=== PATIENT | female | born 1940 | race Caucasian/White ===

== ENCOUNTER → 2019-04-11 18:25 | Outpatient (ROUT) | payer MEDICARE, OTHER, SELFPAY | PROVIDERS: Visit Provider Internal Medicine | DX: L72.3 Sebaceous cyst (principal) | CPT/HCPCS: 87070; 87075; 87205 ==

== ENCOUNTER → 2019-04-16 13:08 | Outpatient (CLI) | payer MEDICARE, OTHER, SELFPAY ==
--- NOTE | 2019-04-16 | DI.CT.S_ITS ---
PROCEDURE: CT ABDOMEN PELVIS W CON INDICATIONS: epigastric pain TECHNIQUE: After the administration of oral and intravenous contrast, 5 mm thick sections acquired from the diaphragms to the symphysis. 5 mm thick coronal and sagittal reformats were performed. For radiation dose reduction, the following was used: automated exposure control, adjustment of mA and/or kV according to patient size. COMPARISON: None. FINDINGS: Image quality: Excellent. ABDOMEN: Lung bases: Lung bases are clear. Heart size is normal. Solid organs: Liver is normal in size and enhancement. Simple 1 cm water density right renal cyst incidentally noted (series 2 image 21). Gallbladder has been previously resected. Biliary system is non-dilated. Pancreas enhances normally. Spleen is normal in size and enhancement. No adrenal nodules. Kidneys are normal in size and enhancement, without hydronephrosis. Peritoneum and bowel: Stomach, small bowel, and colon loops are normal in caliber and wall thickness. No free fluid or air. Nodes and vessels: No retroperitoneal or mesenteric adenopathy. Aorta and inferior vena cava are normal in caliber. Note is made of a phlebolith within the right gonadal vein and lateral to the junction of the middle and lower thirds of the right ureter (series 2 image 48). No urinary tract stone is found. Miscellaneous: No ventral hernias. Just to the right of midline at the abdomen/pelvis junction there is a 2.1 cm rounded subcutaneous structure within the body wall fat, likely a sebaceous cyst. PELVIS: Genitourinary: Bladder wall thickness is normal. Miscellaneous: No inguinal hernias or adenopathy. Bones: No suspicious bony lesions. No vertebral body compression fractures. IMPRESSION: Source of pain is not identified, no mass or inflammation is found. Prior cholecystectomy. There is an unexpected finding of a 2.1 cm rounded masslike structure in the subcutaneous fat to the right of midline at the abdomen/pelvis junction, most likely a sebaceous cyst but requiring clinical correlation to ensure that solid mass lesion is not cause of this finding. Dictated by: Elvin Anderson M.D. on 04/16/2019 at 15:13 Approved by: Elvin Anderson M.D. on 04/16/2019 at 15:17
== END ==
PROVIDERS: PCP Internal Medicine; Visit Provider Internal Medicine
DX: R10.13 Epigastric pain (principal); R19.09 Other intra-abdominal and pelvic swelling, mass and lump; N28.1 Cyst of kidney, acquired; Z90.49 Acquired absence of other specified parts of digestive tract
CPT/HCPCS: 74177

== ENCOUNTER → 2019-10-03 15:29 | Outpatient (ROUT) | payer MEDICARE, OTHER, SELFPAY ==
[2019-10-03 16:01] LABS: BUN Creatinine Ratio 15.8 (6-22); Blood Urea Nitrogen 15 mg/dL (7-17); Calcium 9.7 mg/dL (8.4-10.2); Carbon Dioxide 27 mmol/L (22-32); Chloride 102 mmol/L (98-107); Estimated Glomerular Filt Rate 57.2 mL/min (>60); Glucose 99 mg/dL (80-110); HEMOLYSIS < 15 (0-50); Potassium 3.9 mmol/L (3.4-5.1); Sodium 139 mmol/L (137-145)
[2019-10-04 06:36] LABS: Triiodothyronine T3 Total 107 ng/dL (71-180)
[2019-10-07 13:56] LABS: Free T4, Direct Thyroxine 2.35 ng/dL (0.78-2.19)
== END ==
PROVIDERS: PCP Internal Medicine; Visit Provider Internal Medicine
DX: I10 Essential (primary) hypertension (principal); E03.9 Hypothyroidism, unspecified; M1A.40X0 Other secondary chronic gout, unspecified site, without tophus (tophi)
CPT/HCPCS: 80048; 84436; 84439; 84443; 84480; 84550

== ENCOUNTER → 2019-12-23 10:53 | Outpatient (CLI) | payer MEDICARE, OTHER, SELFPAY ==
[2019-12-24 09:31] LABS: COVID19 Sendout Not Detected (Not Detect)
== END ==
PROVIDERS: PCP Internal Medicine; Visit Provider Physician Assistant
DX: Z11.59 Encounter for screening for other viral diseases (principal)
CPT/HCPCS: 87635

== ENCOUNTER 2019-12-26 08:10 | Day surgery (SDC) | payer MEDICARE, OTHER, SELFPAY ==
[2019-12-26] VITALS (9 sets, daily range): BP systolic 82–107; BP diastolic 44–73; PULSE 60–85; RESP 11–16; TEMP 35.7–36.5; O2SAT 95–98; BMI 29.2
[2019-12-26] MEDS: SODIUM CHLORIDE 0.9% 1,000 ML 200 ML IV (08:44)
--- NOTE | 2019-12-26 09:13 | PM.HP.1 ---
History of Present Illness History of Present Illness Date Patient Seen: 12/26/19 Time Patient Seen: 09:13 Chief complaint: SCREENING COLONOSCOPY Narrative: This is a 79-year-old woman with history of colon polyps on prior colonoscopies, the most recent of which was 6 years ago. I reviewed the note for last colonoscopy, and the polyps which were found were just hyperplastic. She denies any new symptoms of blood in the stool, melena, unexplained abdominal pain, or unexplained weight loss. She says she is otherwise healthy. She denies any family history of colon cancer, and is unsure about family history of colon polyps. ROS: Sinusitis, UTIs. Thirteen system review is otherwise negative other than as mentioned below and in HPI. PE: GENERAL: Well groomed and cooperative. Appears stated age. Answers questions promptly and appropriately. Vital signs noted. HENT: Normocephalic, atraumatic. Hearing intact. EYES: Conjunctiva pink, sclera white, no periorbital swelling. CARDIOVASCULAR: Regular rate. No pedal edema. RESPIRATORY: Non-tachypneic, breathing comfortably on room air. GASTROINTESTINAL: Abdomen soft and non-distended GENITALURINARY: No flank tenderness. MUSCULOSKELETAL: Equal tone and mass bilaterally. SKIN: Warm, dry, soft, appropriate color for ethnicity. No other lesions, rashes, or wounds. NEURO: Alert and Oriented X 3. No gross sensory deficits, or cognitive issues. PSYCH: Appropriate affect and mood. Patient History Medical History Breast cancer (Acute) Bhupinder's disease (Acute) Hypertension (Acute) Hypothyroid (Acute) Surgical History H/O mastectomy (Acute) Family & Social History Social History: household members spouse Tobacco & Substance use: Smoking Status Former smoker alcohol intake never Substance Use Type does not use Meds Home Medications and Allergies Home Medications Medication Instructions Recorded Confirmed Type amlodipine 7.5 mg PO DAILY 12/26/19 12/26/19 History anastrozole 1 mg PO DAILY 12/26/19 12/26/19 History atorvastatin 10 mg PO DAILY 12/26/19 12/26/19 History cholecalciferol (vitamin D3) 25 mcg PO DAILY 12/26/19 12/26/19 History [Vitamin D3] fluticasone propionate [Flovent 1 inh INHALATION DAILY 12/26/19 12/26/19 History Diskus] levothyroxine 100 mcg PO DAILY 12/26/19 12/26/19 History lisinopril 30 mg PO DAILY 12/26/19 12/26/19 History Allergies Allergy/AdvReac Type Severity Reaction Status Date / Time NSAIDS (Non-Steroidal Allergy Unknown Hives Verified 12/26/19 08:25 Anti-Inflamma Exam Vital Signs (past 8 hours): - 12/26/19 08:43 Temperature 97.7 F Pulse Rate 85 Respiratory Rate 12 Blood Pressure 107/73 Pulse Oximetry 95 Oxygen Delivery Method Room Air Assessment & Plan Assessment and plan (1) Personal history of colonic polyps: Status: Acute Assessment & Plan narrative: Risks and benefits of screening colonoscopy and possible polypectomy were discussed with the patient including risk of bleeding, perforation, need for additional procedures, risks of anesthesia. The patient desires to proceed with the colonoscopy procedure. COVID-19 COVID-19 status: Negative Result date/Date tested (Pos, Neg/Pending): 12/23/19 Time Spent With Patient Time with patient: 15-24 minutes
[2019-12-26] MEDS: fentaNYL 250 MCG/5 ML INJ IV (09:19)
[2019-12-26] MEDS: MIDAZOLAM 5 MG/5 ML VIAL IV (09:20)
--- NOTE | 2019-12-26 09:40 | PM.OP.ENDO ---
Operative Date/Time/Diagnoses Date of procedure: 12/26/19 Time of procedure: 09:40 Pre-op diagnosis: Personal history of colon polyps Post-op diagnosis: other (Impossible fold/stenosis at the rectosigmoid junction, aborted colonoscopy) Procedure & Clinicians Study performed: Colonoscopy to rectosigmoid junction Procedural sedation performed by the endoscopist Same procedure as scheduled: No Indications: Personal history of colon polyps Surgeon: Hansa Gibbs Procedure Notes SCOAP/Timeout: Performed Procedure in detail: The patient was brought to the room and placed in left lateral decubitus position with all bony prominences padded. A time-out was performed and then the patient was given procedural sedation starting with 3 mg of Versed and [100] mcg of fentanyl. Vitals were monitored throughout the procedure and remained stable. Once adequately sedated, the procedure was begun. A rectal exam was performed revealing [no abnormalities]. The colonoscope was then introduced to the rectum and advanced through the rectum, approaching the sigmoid colon. However there was a difficult fold at the rectosigmoid junction which was not distensible or passable with the scope. After maneuvering the patient on to her back, and applying abdominal pressure, as well as using the scope stiffener, I was not able to distend the colon at this location in order to find this safely passable lumen. We attempted to fill colon with water, in order to pass the scope that this fold would not distend. Ultimately the decision was made to abort the procedure was it was unsafe to continue blindly. The scope was then withdrawn from the rectum the procedure was concluded. The patient tolerated the procedure well and was transferred to the PACU in stable condition. Sedation minutes: 19 Findings: other findings (Impassable fold/stenosis at the rectosigmoid junction) Specimen(s): none sent Complications: none Impression: Unable to complete colonoscopy due to impossible tortuous/stenotic to sigmoid junction Post-procedure Recommendations: Other recommendation (CT colonography or barium enema) Plan for aftercare: Will refer for CT colonography or barium enema Follow up: as needed (After CT colonography or barium enema are performed) Disposition: PACU
--- NOTE | 2019-12-26 10:17 | SUR.PHASEI ---
Patient resting quietly in stretcher, no distress noted; drowsy; VSS.
--- NOTE | 2019-12-26 10:23 | SUR.PHASEI ---
Changed patient's bed linen due to wetness.
== END 2019-12-26 10:46 | disposition home or self-care (01) ==
PROVIDERS: PCP Internal Medicine; Referring Provider Internal Medicine; Visit Provider Surgery
PROC: 0DJD8ZZ Inspection of Lower Intestinal Tract, Via Natural or Artificial Opening Endoscopic (ICD-10-PCS; CPT 45378; principal; 2019-12-26 09:15)
DX: Z12.11 Encounter for screening for malignant neoplasm of colon (principal); Z86.010 Personal history of colon polyps; E06.3 Autoimmune thyroiditis; I10 Essential (primary) hypertension; K62.4 Stenosis of anus and rectum; Z53.8 Procedure and treatment not carried out for other reasons
CPT/HCPCS: 45378; 99152; J2250; J3010

== ENCOUNTER → 2020-01-08 12:38 | Outpatient (CLI) | payer MEDICARE, OTHER, SELFPAY ==
--- NOTE | 2020-01-08 12:42 | DI.RAD.S_ITS ---
PROCEDURE: FL BARIUM ENEMA W AIR CONTRAST INDICATIONS: unable to complete colonoscopy; tortuous or stenotic sigmoid COMPARISON: [facility], CT, CT ABDOMEN PELVIS W CON, 04/16/2019, 14:12. FINDINGS: KUB: Pre-procedural novelty chain maker film demonstrates a normal bowel gas pattern. No suspicious abdominal calcifications. Visualized solid organ contours are normal in size. No suspicious bony lesions. Colon: There is adequate air-contrast opacification from the rectum to the cecum. The mid and proximal segments of the sigmoid colon are narrow in caliber. There is no abrupt shouldering or obvious luminal filling defect to suggest a mass. Scattered sigmoid colonic diverticula are present. Haustral folds are normal in thickness throughout. IMPRESSION: Long segment smooth narrowing of the proximal and mid sigmoid colon. This did not distend despite copious barium instillation and air insufflation. This may represent a relatively non distensible segment of the sigmoid colon, as there is a lack of distension on a comparison CT abdomen and pelvis obtained 04/16/2019. This is not thought to represent a mass as there is no abrupt shouldering or focal intraluminal filling defect. Repeat colonoscopy could be considered to directly visualize this area, if not already performed. Dictated by: Alfred Justice M.D. on 01/08/2020 at 14:15 Approved by: Alfred Justice M.D. on 01/08/2020 at 14:18
== END ==
PROVIDERS: PCP Internal Medicine; Referring Provider Surgery; Visit Provider Surgery
DX: R93.3 Abnormal findings on diagnostic imaging of other parts of digestive tract (principal); Z86.010 Personal history of colon polyps
CPT/HCPCS: 74280

== ENCOUNTER → 2020-03-02 09:40 | Outpatient (CLI) | payer MEDICARE, OTHER, SELFPAY ==
[2020-03-02 10:47] LABS: COVID19 -Nasal RAPID Negative (Negative)
== END ==
PROVIDERS: PCP Internal Medicine; Visit Provider Surgery
DX: Z01.812 Encounter for preprocedural laboratory examination (principal); Z20.828 Contact with and (suspected) exposure to other viral communicable diseases
CPT/HCPCS: 87635; 99211

== ENCOUNTER 2020-03-03 06:29 | Day surgery (SDC) | payer MEDICARE, OTHER, SELFPAY ==
[2020-03-03] VITALS (8 sets, daily range): BP systolic 90–114; BP diastolic 52–74; PULSE 63–88; RESP 11–16; TEMP 36–37.3; O2SAT 94–100; BMI 29.1
--- NOTE | 2020-03-03 | PATH_ITS ---
[facility] Accession Number: [id number] . 01 Material submitted: . colon - COLON POLYP AT 25 CM . 01 Clinical history: . DX COLONOSCOPY . 02 Diagnosis: Colon Polyp at 25 cm, Biopsy: Hyperplastic polyp. MRV 03/05/2020 1259 Local . 02 Electronically signed: . Howie Jaramillo MD, PhD, Pathologist NPI- [id number] . 01 Gross description: . COLON POLYP AT 25 CM: Received in formalin are 2 fragment(s) of [place], soft tissue measuring 0.4 x 0.3 x 0.2 cm to 0.2 x 0.2 x 0.1 cm submitted entirely in 1 cassette(s) /QBJ 03/04/2020 0932 Local . 02 Pathologist provided ICD-10: K63.5 . 02 CPT . 910440 Performed at: 01 [facility] [address] [facility], [place], [place] [id number] MD Michael Gilliam MD Phone: [phone] Performed at: 02 [facility] [address] [place], [place] [id number] MD Reyna Moses MD Phone: [phone]
[2020-03-03] MEDS: LACTATED RINGERS 1,000 ML 42 ML IV ×2 (07:16→08:53)
--- NOTE | 2020-03-03 07:39 | PM.HP.1 ---
History of Present Illness History of Present Illness Date Patient Seen: 03/03/20 Time Patient Seen: 07:39 Chief complaint: DX COLONOSCOPY Narrative: This is a 79-year-old woman with history of colon polyps on prior colonoscopies, and an impassable segment which was encountered on her colonoscopy last December. BE showed a smooth narrowing consistent with scarring rather than anything that looked like a cancer. I offered the patient a 3 year follow up BE or CT colonography vs re-attempt at colonoscopy with MAC. She is here today for colonsscopy with MAC. She denies any new symptoms of blood in the stool, melena, unexplained abdominal pain, or unexplained weight loss. She says she is otherwise healthy. She denies any family history of colon cancer, and is unsure about family history of colon polyps. ROS: Sinusitis, UTIs. Thirteen system review is otherwise negative other than as mentioned below and in HPI. PE: GENERAL: Well groomed and cooperative. Appears stated age. Answers questions promptly and appropriately. Vital signs noted. HENT: Normocephalic, atraumatic. Hearing intact. EYES: Conjunctiva pink, sclera white, no periorbital swelling. CARDIOVASCULAR: Regular rate. No pedal edema. RESPIRATORY: Non-tachypneic, breathing comfortably on room air. GASTROINTESTINAL: Abdomen soft and non-distended GENITALURINARY: No flank tenderness. MUSCULOSKELETAL: Equal tone and mass bilaterally. SKIN: Warm, dry, soft, appropriate color for ethnicity. No other lesions, rashes, or wounds. NEURO: Alert and Oriented X 3. No gross sensory deficits, or cognitive issues. PSYCH: Appropriate affect and mood. Patient History Medical History Breast cancer Bhupinder's disease Hypertension Hypothyroid Surgical History H/O mastectomy Family & Social History Social History: household members spouse Tobacco & Substance use: Smoking Status Never smoker alcohol intake never Substance Use Type does not use Meds Home Medications and Allergies Home Medications Medication Instructions Recorded Confirmed Type Flovent Diskus 1 inh INHALATION DAILY 12/26/19 03/03/20 History amlodipine 7.5 mg PO DAILY 12/26/19 03/03/20 History anastrozole 1 mg PO DAILY 12/26/19 03/03/20 History atorvastatin 10 mg PO DAILY 12/26/19 03/03/20 History cholecalciferol (vitamin D3) 25 mcg PO DAILY 12/26/19 03/03/20 History [Vitamin D3] levothyroxine 100 mcg PO DAILY 12/26/19 03/03/20 History lisinopril 30 mg PO DAILY 12/26/19 03/03/20 History Allergies Allergy/AdvReac Type Severity Reaction Status Date / Time NSAIDS (Non-Steroidal Allergy Unknown Hives Verified 03/03/20 07:23 Anti-Inflamma Assessment & Plan Assessment and plan (1) Personal history of colonic polyps: Status: Acute (2) Stenosis of colon: Status: Acute (3) Abnormal colonoscopy: Status: Acute Assessment & Plan narrative: Risks and benefits of screening colonoscopy and possible polypectomy were discussed with the patient including risk of bleeding, perforation, need for additional procedures, risks of anesthesia. The patient desires to proceed with the colonoscopy procedure. COVID-19 COVID-19 status: Negative Result date/Date tested (Pos, Neg/Pending): 12/26/19 Time Spent With Patient Time with patient: 15-24 minutes Quality VTE Deep Vein Thrombosis/Pulmonary Embolism Present on Admission: No
--- NOTE | 2020-03-03 08:37 | PM.OP.ENDO ---
Operative Date/Time/Diagnoses Date of procedure: 03/03/20 Time of procedure: 08:37 Pre-op diagnosis: Sigmoid stenosis, impassable on prior colonoscopy, intolerance of conscious sedation Post-op diagnosis: other (Single benign-appearing polyp at 25 cm, very tortuous sigmoid colon, very difficult colonoscopy, no diverticulosis, diverticulitis, or neoplasm to account for the stenosis) Procedure & Clinicians Study performed: Colonoscopy Polypectomy with cold snare Same procedure as scheduled: Yes Indications: Patient with prior attempted colonoscopy with impassable stenosis of the sigmoid colon, and intolerance of conscious sedation. Due to the extreme difficulty of this colonoscopy procedure, and high risk of perforation, as well as the patient's intolerance of conscious sedation, we have consulted the anesthesiologist to perform deep sedation with propofol, and a possible general anesthetic during this procedure. Surgeon: Hansa Gibbs Procedure Notes SCOAP/Timeout: Performed Procedure in detail: The patient was brought to the room and placed in left lateral decubitus position with all bony prominences padded. A time-out was performed and then the patient was put under deep sedation with propofol by Dr. French. Once adequately sedated, the procedure was begun. A rectal exam was performed revealing no abnormalitie. The colonoscope was then introduced to the rectum and advanced through the rectal folds. Once I reached the rectosigmoid junction, the colon took a very tight turn through which I had to pass blindly. I pushed water ahead of me and advanced the scope gently and carefully until I was able to reach open lumen. This was completed without injury or perforation. There were two more similarly stenotic areas, which were passed with gentle blind advancement of the scope with power wash pushing forward. The entire stenotic area was from about 25cm to 45 cm in the sigmoid colon. Once the sigmoid was passed, the scope was advanced to the cecum in the usual fashion. The cecum was identified by the appendiceal orifice, the mucosal tri-fold, and the ileocecal valve. The scope was then retracted while rotating side to side and examining each mucosal fold. A small polyp was found at 25cm and removed with cold snare. When I reached the stenotic area of sigmoid colon again, I carefully examined for any neoplastic or inflammatory cause for the narrowing. There was no visible neoplastic, inflammatory, or infectious appearing abnormality. Extensively this is just the patient's anatomy. At the conclusion of the procedure retroflexion was performed and small grade 1-2 internal hemorrhoids without stigmata of bleeding were seen. The scope was then withdrawn from the rectum the procedure was concluded. The patient tolerated the procedure well and was transferred to the PACU in stable condition. Scope withdrawal time: 10 Findings: polyp and other findings (Sigmoid stenosis with 3 tight kinks) Specimen(s): other (Polyp from 25 cm) Complications: none Impression: Very difficult colonoscopy, very tortuous sigmoid colon with 3 areas of stenosis which had been passed blindly. Single benign-appearing polyp at 25 cm Post-procedure Recommendations: Colonscopy in 10 years (If clinically appropriate. May be done sooner if clinically indicated. May be deferred if patient is not healthy enough for repeat colonoscopy at that time.) Follow up: as needed Disposition: PACU
--- NOTE | 2020-03-03 09:18 | SUR.PHASEII ---
Pt ready to go, belly soft, no nausea, daughter called for greens picker, and d/c instructions discussed.
--- NOTE | 2020-03-03 09:34 | SUR.PHASEII ---
Pt up to BR, steady when up, pt left unit in stable condition.
--- NOTE | 2020-03-03 09:49 | SUR.PHASEII ---
Pt left in stable condition.
== END 2020-03-03 09:51 | disposition home or self-care (01) ==
PROVIDERS: PCP Internal Medicine; Referring Provider Internal Medicine; Visit Provider Surgery
PROC: 0DJD8ZZ Inspection of Lower Intestinal Tract, Via Natural or Artificial Opening Endoscopic (ICD-10-PCS; CPT 45378; principal; 2020-03-03 07:45)
DX: Z12.11 Encounter for screening for malignant neoplasm of colon (principal); K56.699 Other intestinal obstruction unspecified as to partial versus complete obstruction; Z86.010 Personal history of colon polyps; K63.5 Polyp of colon
CPT/HCPCS: 45385; J2250; J2405; J2704; J3010